=== PATIENT | female | born 1975 | race Two or more races ===

== ENCOUNTER 2021-11-06 06:09 | Outpatient (CLI) | payer OTHER | END 2021-11-06 23:00 | disposition home or self-care (01) | LOC: LAB 06:09 | PROVIDERS: ATTEND Obstetrics & Gynecology | DX: Z20.828 Contact with and (suspected) exposure to other viral communicable diseases (principal); Z20.818 Contact with and (suspected) exposure to other bacterial communicable diseases ==

== ENCOUNTER 2025-02-22 09:41 | Outpatient (CLI) | payer OTHER ==
[2025-02-22 10:44] LABS: URINE APPEARANCE Clear; URINE BILIRRUBIN Negative (NEGATIVE); URINE BLOOD Negative; URINE COLOR Yellow; URINE GLUCOSE Negative (NEGATIVE); URINE KETONE Negative (NEGATIVE); URINE LEUKOCYTE Moderate; URINE NITRATE Negative; URINE PROTEIN Negative (NEGATIVE); URINE UROBILINOGEN 0.2 E.U./dl
[2025-02-22 10:47] LABS: URINE BACTERIA 2537.1 uL (0.0-1933); URINE EPITHELIAL CELLS 38.1 uL (0.0-38.8); URINE RBC 12.1 uL (0.0-20.8); URINE WBC 129.0 uL (0.0-23.2)
[2025-02-22 10:56] LABS: BASO % 0.2 % (0.1-1.2); EOS # 0.17 (0.04-0.54); EOS % 1.9 % (0.7-7.0); LYMPH # 2.56 (1.18-3.74); LYMPH % 28.7 % (19.3-53.1); MEAN PLATELET VOLUME 9.40 fl (9.4-12.4); MONO # 0.49 (0.24-0.82); MONO % 5.5 % (4.7-12.5); NEUT # 5.65 (1.56-6.13); NEUT % 63.3 % (34.0-71.1); RED CELL DISTRIBUTION WIDTH 13.9 % (11.6-14.4)
[2025-02-22 11:42] LABS: URINE CAST 0.28 uL (0.0-1.40)
[2025-02-22 12:03] LABS: ALT/SGPT 19.0 U/L (12-78); AST/SGOT 13.0 U/L (15-37); BILIRUBIN TOTAL 0.38 mg/dL (0.3-1.2); BUN CREA RATIO 26.0 (7.0-25.0); CHOL HDL RATIO 3.7 (0-5.0); CREATININE SERUM 0.72 mg/dL (0.55-1.02); GFR 85.4; GLOBULINA 3.8 G/DL (2.4-3.5); GLUCOSE FASTING 87.0 mg/dL (65-100); HDL 56.0 mg/dl (40-60); LDL 138.0 mg/dl (0-130); OSMOLALITY SERUM 283.0 MOSM/KG (275-295); T4 TOTAL 7.84 UG/DL (4.8-13.9); TSH 1.09 uIU/mL (0.358-3.74); VLDL 13.0 (0-39)
[2025-02-22 12:06] LABS: T3 TOTAL 1.07 ng/ml (0.846-2.02); VITAMIN D3 25 HYDROXY 22.15 ng/ml (30-120)
== END 2025-02-22 09:47 | disposition home or self-care (01) ==
LOC: LAB 09:41
PROVIDERS: ATTEND General Practice
DX: E78.1 Pure hyperglyceridemia (principal); I10 Essential (primary) hypertension; R73.02 Impaired glucose tolerance (oral); E11.9 Type 2 diabetes mellitus without complications; Z00.01 Encounter for general adult medical examination with abnormal findings; Z12.11 Encounter for screening for malignant neoplasm of colon; D51.9 Vitamin B12 deficiency anemia, unspecified; E55.9 Vitamin D deficiency, unspecified

== ENCOUNTER 2025-03-01 10:48 | Outpatient (CLI) | payer OTHER ==
[2025-03-01 11:35] LABS: ob POSITIVE (NEGATIVE)
== END 2025-03-01 10:51 | disposition home or self-care (01) ==
LOC: LAB 10:48
DX: E78.5 Hyperlipidemia, unspecified (principal); I10 Essential (primary) hypertension; R73.02 Impaired glucose tolerance (oral); E11.9 Type 2 diabetes mellitus without complications; Z00.01 Encounter for general adult medical examination with abnormal findings; Z12.11 Encounter for screening for malignant neoplasm of colon; D51.9 Vitamin B12 deficiency anemia, unspecified; E55.9 Vitamin D deficiency, unspecified